=== PATIENT | male | born 1950 | race Caucasian/White ===

== ENCOUNTER 2017-02-05 14:50 | Inpatient (IN) | payer MEDICARE ==
[~2017-02-05] VITALS: Ht 170.2 cm; Wt 77.1 kg
[2017-02-05] MEDS ORDERED: METH5TAB2 PO (16:42)
[2017-02-05] MEDS ORDERED: TRAZ-144 PO (16:42)
[2017-02-05] MEDS ORDERED: SERT50TA PO (16:42)
[2017-02-05] MEDS ORDERED: ATEN100T PO (16:42)
[2017-02-05] MEDS ORDERED: MAG HYDROX/AL HYDROX/SIMETH 30 ML UDC PO PRN (17:00)
[2017-02-05] MEDS ORDERED: LORAZEPAM 0.5 MG TABLET PO PRN (17:00)
[2017-02-05] MEDS ORDERED: MAGNESIUM HYDROXIDE 30 ML UDC PO PRN (17:00)
[2017-02-05] MEDS ORDERED: ACETAMINOPHEN 325 MG TABLET PO PRN (17:00)
--- NOTE | 2017-02-05 17:00 | NUR ---
RN-CO: Dr. Haskins called back to give admitting orders noted and carried out.
--- NOTE | 2017-02-05 18:18 | NUR ---
GPS RN: ADMITTED PATIENT FROM [facility], DIRECT ADMIT, ARRIVED TO THE UNIT [id number]. PATIENT IS ON HOLD FOR GD. UPON FACE TO FACE ASSESSMENT PATIENT IS A/OX3, DEPRESSED, FLAT AFFECT, POOR HISTORIAN, UNWILLING TO ANSWER QUESTIONS, STATES "I AM VERY TIRED AND HUNGRY, LEAVE ME ALONE". DENIES SI/HI. VS STABLE. PATIENT REFUSED FULL BODY ASSESSMENT, ONLY ALLOWED TO CHECK THE VISIBLE BODY AREAS. PICTURES TAKEN AND DOCUMENTED IN THE CHART. MRSA SWAB DONE. PATIENT ORIENTED TO THE UNIT AND HIS ROOM, PROVIDED WITH A MEAL TRAY, ALL NEEDS ATTENDED, WILL CONTINUE TO MONITOR AND ENDORSE TO THE UPCOMING SHIFT ACCORDINGLY.
[2017-02-05] MEDS ORDERED: METHADONE HCL 5 MG TABLET PO SCH (19:30)
[2017-02-05 20:00] VITALS: BP 133/86
[2017-02-06 08:17] VITALS: BP 143/87
[2017-02-06 08:40] LABS: ALBUMIN 2.3 g/dL (3.4-5.0); BILIRUBIN,TOTAL 1.7 mg/dL (0.2-1.0); CALCIUM, SERUM 8.7 mg/dL (8.5-10.1); CREATININE 1.2 mg/dL (0.6-1.3); POTASSIUM 3.8 mmol/L (3.5-5.1); TOTAL PROTEIN, SERUM 6.6 g/dL (6.4-8.2)
[2017-02-06] MEDS ORDERED: METHADONE HCL 10 MG TABLET PO SCH (08:49)
[2017-02-06] MEDS: ATENOLOL 50 MG TABLET PO SCH ×2 (09:03→17:18)
[2017-02-06] MEDS: METHADONE HCL 10 MG TABLET PO SCH (09:05)
[2017-02-06 09:31] LABS: BASOPHILS % (AUTO) 0.5 % (0.0-2.0); EOSINOPHILS # (AUTO) 0.1 /CMM (0.0-0.7); EOSINOPHILS % (AUTO) 2.1 % (0.0-6.0); HEMATOCRIT 37 % (39-51); HEMOGLOBIN 13.1 g/dL (13.5-17.5); MEAN CORPUSCULAR HEMOGLOBIN 34 PG (26.0-33.0); MEAN CORPUSCULAR HGB CONC 35 g/dl (31.0-36.0); MEAN CORPUSCULAR VOLUME 95 fL (80-96); MONOCYTES # (AUTO) 0.6 /CMM (0.1-1.30); MONOCYTES % (AUTO) 10.5 % (2.0-12.0); NEUTROPHILS # (AUTO) 3.4 /CMM (1.8-8.9); NEUTROPHILS % (AUTO) 54.9 % (43.0-81.0); PLATELET COUNT (AUTO) 100 /CMM (150-450); RDW COEFFICIENT OF VARIATION 13.8 (11.5-15.0); WHITE BLOOD COUNT (AUTO) 6.1 K/uL (4.3-11.0)
[2017-02-06 16:07] VITALS: BP 117/78
[2017-02-06 20:00] VITALS: BP 130/82
[2017-02-06] MEDS: QUETIAPINE FUMARATE 25 MG TABLET PO SCH (21:29)
[2017-02-06] MEDS: TRAZODONE 50 MG TABLET PO SCH (21:29)
[2017-02-07 07:55] VITALS: BP 113/73
[2017-02-07] MEDS: ATENOLOL 50 MG TABLET PO SCH ×2 (08:44→16:45)
[2017-02-07] MEDS: SERTRALINE HCL 50 MG TABLET PO SCH (08:44)
[2017-02-07] MEDS: METHADONE HCL 10 MG TABLET PO SCH (08:45)
--- NOTE | 2017-02-07 09:04 | NUR ---
RN NOTES PATIENT STATED "I NEED MY NORCO FOR MY BACK PAIN". NORCO 1 TAB GIVEN ORDERED PS=01/16. WILL CONTINUE TO MONITOR Addendum: 02/07/17 at 0907 by IRLANDA BROWN RN DISREGARD NURSES NOTES.
[2017-02-07 16:01] VITALS: BP 132/82
--- NOTE | 2017-02-07 17:23 | NUR ---
RN NOTES PT REMAIN CALM AND NO S/S OF ANY DISTRESS NOTED. REFUSED TO TAKE A SHOWER. HE SAID "I'M LAZY TO TAKE MY SHOWER". NEEDS ALL ANTICIPATED AND ATTENDED.
[2017-02-07 20:00] VITALS: BP 140/76
[2017-02-07] MEDS: TRAZODONE 50 MG TABLET PO SCH (21:20)
[2017-02-07] MEDS: QUETIAPINE FUMARATE 25 MG TABLET PO SCH (21:20)
[2017-02-07 21:49] VITALS: BP 136/77
--- NOTE | 2017-02-08 07:19 | NUR ---
RN GPS NOTES PT. SLEPT 4 HOURS , DENIES SI HI AT THIS TIME NO ACUTE DISTRESS NOTED, ENDORSE TO NEXT SHIFT FOR CONTINUITY OF CARE .
[2017-02-08 08:00] VITALS: BP 106/64
[2017-02-08] MEDS: ATENOLOL 50 MG TABLET PO SCH ×2 (08:47→16:54)
[2017-02-08] MEDS: METHADONE HCL 10 MG TABLET PO SCH (08:47)
[2017-02-08] MEDS: SERTRALINE HCL 50 MG TABLET PO SCH (08:47)
--- NOTE | 2017-02-08 09:00 | NUR ---
GPS/RN PATIENT REFUSED ZOLOFT 50 MG, EXPLAINED RISKS AND BENEFITS, BUT CONTINUES TO REFUSE, WILL CONTINUE TO ENCOURAGE TO COMPLY WITH MD REGIMEN.
[2017-02-08 10:15] LABS: BASOPHILS # (AUTO) 0.1 /CMM (0.0-0.2); BASOPHILS % (AUTO) 1.6 % (0.0-2.0); EOSINOPHILS # (AUTO) 0.1 /CMM (0.0-0.7); EOSINOPHILS % (AUTO) 1.2 % (0.0-6.0); HEMATOCRIT 39 % (39-51); HEMOGLOBIN 13.5 g/dL (13.5-17.5); LYMPHOCYTES # (AUTO) 2.4 /CMM (0.8-4.8); LYMPHOCYTES % (AUTO) 28.4 % (20.0-44.0); MEAN CORPUSCULAR HEMOGLOBIN 33 PG (26.0-33.0); MEAN CORPUSCULAR HGB CONC 35 g/dl (31.0-36.0); MEAN CORPUSCULAR VOLUME 95 fL (80-96); MONOCYTES # (AUTO) 1.2 /CMM (0.1-1.30); MONOCYTES % (AUTO) 13.8 % (2.0-12.0); NEUTROPHILS # (AUTO) 4.7 /CMM (1.8-8.9); PLATELET COUNT (AUTO) 97 /CMM (150-450); RDW COEFFICIENT OF VARIATION 12.9 (11.5-15.0); RED BLOOD CELL COUNT(AUTO) 4.07 MIL/uL (4.5-6.0); WHITE BLOOD COUNT (AUTO) 8.6 K/uL (4.3-11.0)
[2017-02-08 10:29] LABS: ALBUMIN 2.3 g/dL (3.4-5.0); BILIRUBIN,DIRECT 1.2 mg/dL (0.0-0.2); TOTAL PROTEIN, SERUM 6.7 g/dL (6.4-8.2)
--- NOTE | 2017-02-08 14:38 | NUR ---
Initial Discharge Plan: Patient was residing alone at [address] [place] [address]. ([phone]). However, patient stated that he was being evicted and will need placement. survey workers supervisor attempted to contact patient's sister Lizeth ([phone]) however, she was unavailable, ironworker foreman left a message with her contact information and will attempt again later. survey workers supervisor attempted to contact patient's other contact Andrae Collado ([phone]) However, it appeared to be the office to the [facility]. survey workers supervisor was unable to leave a message. survey workers supervisor will help form a safe and proper discharge.
[2017-02-08 16:00] VITALS: BP 112/66
[2017-02-08 19:29] VITALS: BP 127/52
[2017-02-08] MEDS: QUETIAPINE FUMARATE 25 MG TABLET PO SCH (21:31)
[2017-02-08] MEDS: TRAZODONE 50 MG TABLET PO SCH (21:31)
--- NOTE | 2017-02-09 06:33 | NUR ---
RN GPS NOTES PT. , DENIES SI HI AT THIS TIME NO ACUTE DISTRESS NOTED, ATTENDED ALL NEEDS ANTICIPATED ENDORSE TO NEXT SHIFT FOR CONTINUITY OF CARE .
[2017-02-09 08:00] VITALS: BP 120/74
[2017-02-09] MEDS: SERTRALINE HCL 50 MG TABLET PO SCH (08:19)
[2017-02-09] MEDS: METHADONE HCL 10 MG TABLET PO SCH (08:19)
[2017-02-09] MEDS: ATENOLOL 50 MG TABLET PO SCH ×2 (08:20→16:39)
[2017-02-09 16:00] VITALS: BP 124/74
--- NOTE | 2017-02-09 19:13 | NUR ---
GPS/RN NOTE: PATIENT ASLEEP. NO APPARENT DISTRESS NOTED.
--- NOTE | 2017-02-09 21:05 | NUR ---
GPS/RN NOTE: PATIENT REFUSED TO TURN ON THE LEFT SIDE. CHARGE NURSE AWARE
[2017-02-09] MEDS: QUETIAPINE FUMARATE 25 MG TABLET PO SCH (22:20)
[2017-02-09] MEDS: TRAZODONE 50 MG TABLET PO SCH (22:20)
--- NOTE | 2017-02-10 00:46 | NUR ---
GPS/RN NOTE: REFUSED TURNING AND REPOSITION.
[2017-02-10 08:00] VITALS: BP 121/69
[2017-02-10] MEDS: ATENOLOL 50 MG TABLET PO SCH ×2 (08:15→17:28)
[2017-02-10] MEDS: METHADONE HCL 10 MG TABLET PO SCH (08:16)
[2017-02-10] MEDS: SERTRALINE HCL 50 MG TABLET PO SCH (08:16)
--- NOTE | 2017-02-10 09:00 | NUR ---
RN-CO: Asked patient if he wants to shower. Patient refused. Check his diaper if it is wet. Clean and dry at this time. `
--- NOTE | 2017-02-10 10:00 | NUR ---
RN-CO: Patient was asked if he wants to shower again, patient stated I don't need it. Patient was taken to the bathroom per request. We will continue to monitor.
--- NOTE | 2017-02-10 11:30 | NUR ---
RN-CO: Sister of patient called, asking the health science writer's full name, yelling and screaming. Threatening and accusing charge nurse that patient is not being showered. However patient refused. She was complaining that the psychiatrist did not explain to her why patient is taking anti-psychotic medication. I read the advisement to the sister, explaining the indications vs side effects but she is jumping from one complain to another not waiting for the charge nurse to finish.
--- NOTE | 2017-02-10 11:47 | NUR ---
RN-CO: Sister was reassured that the staff is monitoring the well being of his brother but she keeps on threatening and screaming on the phone.
--- NOTE | 2017-02-10 12:00 | NUR ---
RN-CO: Patient was assisted by staff to eat lunch.
--- NOTE | 2017-02-10 13:45 | NUR ---
RN-CO: Patient was checked by CITLALI Kwan and charge nurse if he needs to go to bathroom. He, smiled and stated I don't need to go there now. Diaper was checked, clean and dry. Repositioned the patient and was offered water.
--- NOTE | 2017-02-10 14:47 | NUR ---
plant production worker faxed [facility] admissions [address] [place] [address] (phone: [phone]/ fax: [phone]). plant production worker will follow-up.
--- NOTE | 2017-02-10 15:56 | NUR ---
RN-CO: DR JOHNS MADE AWARE THAT SISTER CHRIS ( [phone] ) WANTS TO TALK TO HIM.
[2017-02-10 16:00] VITALS: BP 130/77
--- NOTE | 2017-02-10 16:00 | NUR ---
RN-CO: Patient was asked and assisted in using his urinal. Patient remains clean and dry (diaper). Turned and repositioned. Offload heels.
--- NOTE | 2017-02-10 16:46 | NUR ---
RN-CO: DR Haskins spoke to the sister.
[2017-02-10 20:02] VITALS: BP 132/82
[2017-02-10] MEDS: TRAZODONE 50 MG TABLET PO SCH (21:17)
[2017-02-10] MEDS: QUETIAPINE FUMARATE 25 MG TABLET PO SCH (21:17)
--- NOTE | 2017-02-11 07:04 | NUR ---
RN GPS NOTES PT. SLEPT 0 HOURS , OFFERED PT. TO SLEEPER, PT. REFUSED I DONT WANT IT .
[2017-02-11 08:09] VITALS: BP 111/73
[2017-02-11] MEDS: SERTRALINE HCL 50 MG TABLET PO SCH (08:18)
[2017-02-11] MEDS: ATENOLOL 50 MG TABLET PO SCH ×2 (08:19→17:31)
[2017-02-11] MEDS: METHADONE HCL 10 MG TABLET PO SCH (08:20)
--- NOTE | 2017-02-11 15:08 | NUR ---
mold yard worker faxed initial review packet to [facility] & [place] [address] [facility] [address] (phone: [phone]/ ). mold yard worker will follow-up.
[2017-02-11 16:30] VITALS: BP 124/70
[2017-02-11 20:00] VITALS: BP 123/78
[2017-02-11] MEDS: QUETIAPINE FUMARATE 25 MG TABLET PO SCH (22:02)
[2017-02-11] MEDS: TRAZODONE 50 MG TABLET PO SCH (22:02)
[2017-02-11] MEDS: TEMAZEPAM 7.5 MG CAPSULE PO PRN (22:03)
[2017-02-12 08:00] VITALS: BP 134/82
[2017-02-12] MEDS: METHADONE HCL 10 MG TABLET PO SCH (08:10)
[2017-02-12] MEDS: ATENOLOL 50 MG TABLET PO SCH ×2 (08:11→16:31)
[2017-02-12] MEDS: SERTRALINE HCL 50 MG TABLET PO SCH (08:11)
--- NOTE | 2017-02-12 11:28 | NUR ---
smooth and burr worker composites spoke to Sis from [facility] & [address] [address] (phone: [phone]/ ) who stated that they could not accept the patient at the moment as they do not have bed availability.
--- NOTE | 2017-02-12 11:58 | NUR ---
manufacturing worker faxed initial review packet to [facility] ( / ) [address]. [facility] [address]. manufacturing worker will follow-up.
--- NOTE | 2017-02-12 14:53 | NUR ---
GPS RN: SPOKE WITH PATIENT'S SISTER CHRIS AND SHE STATES THAT THE APARTMENT MANAGEMENT WILL COME ON WEDNESDAY AT 10AM AND HAVE PATIENT SIGN A PAPERWORK REGARDING HIS EVICTION FROM HIS APARTMENT. PER RANDY PEREZ IS AWARE AND WILL COORDINATE THIS. THE DIRECTOR OF THE UNIT SUNDAR MADE AWARE AND STATED THAT IT IS OK LONG WE HAVE AN ORDER FROM DR. JOHNS, SINCE IT WILL BE OUTSIDE OF THE VISITING HOURS.
--- NOTE | 2017-02-12 15:49 | NUR ---
Brayan medina from [facility] ( / ) [address] [place] [address] came to assess the patient at 12:30 Pm.
--- NOTE | 2017-02-12 15:51 | NUR ---
structural steel trades worker spoke to Tammie thomas) from [facility] ( / ) [address] [facility] [address] who stated that they can accept the patient for Wednesday.
[2017-02-12 15:57] VITALS: BP 126/89
[2017-02-12 19:54] VITALS: BP 113/86
[2017-02-12 20:00] VITALS: BP 113/86
[2017-02-12] MEDS: TRAZODONE 50 MG TABLET PO SCH (21:07)
[2017-02-12] MEDS: QUETIAPINE FUMARATE 25 MG TABLET PO SCH (21:07)
[2017-02-12] MEDS: TEMAZEPAM 7.5 MG CAPSULE PO PRN (22:58)
[2017-02-13 08:00] VITALS: BP 121/87
[2017-02-13] MEDS: METHADONE HCL 10 MG TABLET PO SCH (08:52)
[2017-02-13] MEDS: ATENOLOL 50 MG TABLET PO SCH ×2 (08:55→16:53)
[2017-02-13] MEDS: SERTRALINE HCL 50 MG TABLET PO SCH (08:55)
[2017-02-13 16:00] VITALS: BP 115/71
[2017-02-13 20:15] VITALS: BP 114/67
[2017-02-13] MEDS: TRAZODONE 50 MG TABLET PO SCH (21:24)
[2017-02-13] MEDS: TEMAZEPAM 7.5 MG CAPSULE PO PRN (21:25)
[2017-02-13] MEDS ORDERED: QUETIAPINE FUMARATE 25 MG TABLET PO SCH (22:00)
[2017-02-14 08:13] VITALS: BP 138/87
[2017-02-14] MEDS: ATENOLOL 50 MG TABLET PO SCH ×2 (08:29→16:41)
[2017-02-14] MEDS: METHADONE HCL 10 MG TABLET PO SCH (08:29)
[2017-02-14] MEDS: SERTRALINE HCL 50 MG TABLET PO SCH (08:29)
[2017-02-14] MEDS: BENZTROPINE MESYLATE (1 MG) 1 MG TABLET PO SCH ×2 (13:00→16:43)
--- NOTE | 2017-02-14 13:30 | NUR ---
[id number]: PT REFUSED TO TAKE COGENTIN 0.5 MG PO. DISCUSS THE IMPORTANCE OF THE USAGE AND SIDE EFFECTS OF THE MEDICATION. OFFERED 3X. WILL CONTINUE TO MONITOR FOR BEHAVIOR AND SAFETY EVERY 15 MINUTES.
[2017-02-14 16:00] VITALS: BP 115/75
--- NOTE | 2017-02-14 16:41 | NUR ---
[id number]: DIDN'T ADMINISTER ATENOLOL 100 MG PO DUE TO DECREASED BLOOD PRESSURE IS 115/75 AND PULSE IS 75.
--- NOTE | 2017-02-14 16:43 | NUR ---
[id number]: REFUSED COGENTIN 0.5 MG PO. OFFERED 3X. DISCUSS THE IMPORTANCE OF BEING COMPLIANT WITH TREATMENT AND PT BECAME IRRITABLE AND UNCOOPERATIVE.
[2017-02-14 19:45] VITALS: BP 121/75
[2017-02-14] MEDS: QUETIAPINE FUMARATE 25 MG TABLET PO SCH (21:48)
[2017-02-14] MEDS: TRAZODONE 50 MG TABLET PO SCH (21:49)
[2017-02-15 08:00] VITALS: BP 116/65
[2017-02-15] MEDS: SERTRALINE HCL 50 MG TABLET PO SCH (08:04)
[2017-02-15] MEDS: METHADONE HCL 10 MG TABLET PO SCH (08:04)
[2017-02-15] MEDS: BENZTROPINE MESYLATE (1 MG) 1 MG TABLET PO SCH ×2 (08:05→16:16)
[2017-02-15] MEDS: ATENOLOL 50 MG TABLET PO SCH ×2 (08:05→16:16)
--- NOTE | 2017-02-15 10:00 | NUR ---
[id number]-[id number]: PT IS ANXIOUS, RESTLESS, EASILY IRRITABLE. PT REQUIRES CONSTANT REDIRECTION. PT IS NOT VERBALLY ABUSIVE WITH STAFF. PT IS ABLE TO FOLLOW SIMPLE COMMANDS. ENCOURAGE PT TO PARTICIPATE IN GROUP ACTIVITIES. PT REFUSED EVEN AFTER OFFERED 3X.
[2017-02-15 16:00] VITALS: BP 111/74
[2017-02-15 19:37] VITALS: BP 140/92
[2017-02-15] MEDS: TRAZODONE 50 MG TABLET PO SCH (21:10)
[2017-02-15] MEDS: QUETIAPINE FUMARATE 25 MG TABLET PO SCH (21:11)
[2017-02-16 08:00] VITALS: BP 120/78
[2017-02-16] MEDS: SERTRALINE HCL 50 MG TABLET PO SCH (08:08)
[2017-02-16] MEDS: BENZTROPINE MESYLATE (1 MG) 1 MG TABLET PO SCH ×2 (08:08→16:13)
[2017-02-16] MEDS: ATENOLOL 50 MG TABLET PO SCH ×2 (08:09→16:14)
[2017-02-16] MEDS: METHADONE HCL 10 MG TABLET PO SCH (08:10)
--- NOTE | 2017-02-16 10:30 | NUR ---
[id number]: PT IS CALM AND COOPERATIVE WITH STAFF. PT IS COMPLAINT WITH MORNING MEDICATIONS. PT IS NOT RESISTANT TO CARE. PT INITIATED TO TAKE A MORNING SHOWER AND ALLOWED STAFF TO SHAVE HIM. PT FOLLOWS COMMANDS. PT PARTICIPATED IN MORNING GROUP ACTIVITY. WILL CONTINUE TO MONITOR FOR SAFETY AND BEHAVIOR EVERY 15 MINUTES.
--- NOTE | 2017-02-16 11:00 | NUR ---
RN-CO: Staff was able to convince the patient to shower today.
[2017-02-16 12:34] LABS: ALBUMIN 2.7 g/dL (3.4-5.0); BILIRUBIN,DIRECT 0.9 mg/dL (0.0-0.2); BILIRUBIN,TOTAL 1.6 mg/dL (0.2-1.0); CALCIUM, SERUM 8.9 mg/dL (8.5-10.1); CREATININE 1.3 mg/dL (0.6-1.3); POTASSIUM 3.6 mmol/L (3.5-5.1); TOTAL PROTEIN, SERUM 7.7 g/dL (6.4-8.2)
--- NOTE | 2017-02-16 12:58 | NUR ---
[id number]: NOTIFIED DR. GANDHI ABOUT LAB RESULTS: TOTAL BILIRUBIN= 1.6, DIRECT BILIRUBIN= 0.9, AST= 50, ALBUMIN=2.7. PENDING RETURN PHONE CALL.
[2017-02-16] MEDS ORDERED: QUETIAPINE FUMARATE 25 MG TABLET PO SCH (14:00)
[2017-02-16 16:00] VITALS: BP 121/75
[2017-02-16] MEDS: QUETIAPINE FUMARATE 25 MG TABLET PO SCH (16:14)
[2017-02-16 21:08] VITALS: BP 113/78
[2017-02-16] MEDS: TRAZODONE 50 MG TABLET PO SCH (21:23)
[2017-02-16] MEDS: TEMAZEPAM 7.5 MG CAPSULE PO PRN (23:40)
--- NOTE | 2017-02-17 07:30 | NUR ---
ALERT AND ORIENTED X3.EASILY AGITATED.VS STABLE.
[2017-02-17 07:59] VITALS: BP 130/92
[2017-02-17] MEDS: BENZTROPINE MESYLATE (1 MG) 1 MG TABLET PO SCH ×2 (08:21→18:36)
[2017-02-17] MEDS: METHADONE HCL 10 MG TABLET PO SCH (08:22)
[2017-02-17] MEDS: SERTRALINE HCL 50 MG TABLET PO SCH (08:23)
[2017-02-17] MEDS: QUETIAPINE FUMARATE 25 MG TABLET PO SCH ×2 (08:24→18:37)
[2017-02-17] MEDS: ATENOLOL 50 MG TABLET PO SCH ×2 (08:24→18:37)
--- NOTE | 2017-02-17 15:00 | NUR ---
DR. MOREIRA AND IN TO SEE PT.DEPRESSED WITH FLAT AFFECT.
[2017-02-17] MEDS: DIVALPROEX SODIUM 125 MG CAP.SPRINK PO SCH ×2 (15:17→18:37)
[2017-02-17 16:00] VITALS: BP 132/76
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
--- NOTE | 2017-02-17 18:48 | NUR ---
NO CHANGE IN STATUS.
[2017-02-17 20:00] VITALS: BP 112/82
[2017-02-17] MEDS: TEMAZEPAM 7.5 MG CAPSULE PO PRN (21:05)
[2017-02-17] MEDS: TRAZODONE 50 MG TABLET PO SCH (21:05)
[2017-02-18 08:00] VITALS: BP 125/84
[2017-02-18] MEDS: METHADONE HCL 10 MG TABLET PO SCH (08:13)
--- NOTE | 2017-02-18 08:13 | NUR ---
detention worker attempted to contact patient's sister Lizeth ([phone]) to inform her that patient will more than likely be discharged today 02/18/17 to [facility] ( / ) [address] [place] [id number]. However, she was unavailable, social insurance analyst left her a detailed voicemail with her contact information. social insurance analyst will follow-up.
[2017-02-18] MEDS: DIVALPROEX SODIUM 125 MG CAP.SPRINK PO SCH ×2 (08:15→12:56)
[2017-02-18] MEDS: QUETIAPINE FUMARATE 25 MG TABLET PO SCH ×2 (08:16→12:56)
[2017-02-18] MEDS: BENZTROPINE MESYLATE (1 MG) 1 MG TABLET PO SCH (08:16)
[2017-02-18] MEDS: SERTRALINE HCL 50 MG TABLET PO SCH (08:16)
[2017-02-18 08:24] VITALS: BP 125/84
[2017-02-18] MEDS: ATENOLOL 50 MG TABLET PO SCH (08:24)
--- NOTE | 2017-02-18 09:29 | NUR ---
ANNABELLE spoke with patient's sister Lizeth ([phone]) and she was notified that patient is being discharged today. Lizeth agreed with the discharge plan. Pt. will discharge today to [place] [address] [address] [facility] [address] / .
--- NOTE | 2017-02-18 09:48 | NUR ---
Tammie (admissions) from [facility] ( / ) [address] [place] [address] was notified of pt's discharge today. She agreed and asked for ETA. Pt. will be picked up at 2:30PM.
--- NOTE | 2017-02-18 14:55 | NUR ---
GPS RN: PATIENT'S HOLD DISCONTINUED AND PATIENT DISCHARGED TO [facility]3]. PATIENT'S CONDITION IS STABLE FOR DISCHARGE, VS STABLE, PATIENT DENIES ANY SI/HI AT THE TIME OF DISCHARGE. ALL BELONGINGS RETURNED TO THE PATIENT. MEDICATIONS RECONCILED AND THE COPY PROVIDED TO THE PATIENT WITH THE PRINTED EDUCATIONAL EXIT CARE. REPORT GIVEN TO GLEN PLASENCIA AT THE FACILITY. PATIENT LEFT THE UNIT AT THIS TIME ON A GURNEY [facility]IA [facility].
--- NOTE | 2017-02-18 15:25 | NUR ---
Discharge Note: Patient was [facility] [address] [facility] [address] [employer]. Patient's sister Lizeth ([phone]) was informed. Patient and patient's sister were agreeable with the discharge plan. Patient's mood and affect were appropriate. Patient denied suicidal and homicidal ideations. Patient will follow-up with Dr. Davila ([phone]) at the facility to further discuss his substance abuse. Facilitated info to IDT team who are in agreement with discharge arrangement. The multidisciplinary exitcare form was done, printed, signed, and given to the patient.
== END 2017-02-18 14:55 | DRG 885 ==
LOC: GPS 16:28
PROVIDERS: ADMIT Psychiatry & Neurology Psychiatry; ATTEND Internal Medicine
DX: F33.2 Major depressive disorder, recurrent severe without psychotic features (principal); R45.851 Suicidal ideations; I10 Essential (primary) hypertension; M19.90 Unspecified osteoarthritis, unspecified site; K80.20 Calculus of gallbladder without cholecystitis without obstruction; K76.0 Fatty (change of) liver, not elsewhere classified; R74.0 Nonspecific elevation of levels of transaminase and lactic acid dehydrogenase [LDH]; F19.10 Other psychoactive substance abuse, uncomplicated; R16.1 Splenomegaly, not elsewhere classified
CPT/HCPCS: 36415; 76700-TC; 80048-TC; 80053-TC; 80061-TC; 80076-TC; 85025-TC; 97001-TC; 97116-TC; 97530-TC; Z7610